=== PATIENT | male | born 1970 | race Caucasian/White ===

== ENCOUNTER 2018-01-28 11:51 | Emergency (ER) | payer OTHER, SELFPAY ==
[2018-01-28 11:53] VITALS: BP 157/87; PULSE 89; RESP 17; TEMP 36.7; O2SAT 97; BMI 36.3
--- NOTE | 2018-01-28 11:58 | ED.RN ---
PATIENT REPORTS WORKERS COMP CLAIM D/T ACCIDENT. UNKNOWN IF NEEDS DRUG SCREEN. WAITING ON RETURN CALL FROM PATIENT'S SECURITY CONTROL ROOM OFFICER.
--- NOTE | 2018-01-28 12:02 | ED.RN ---
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
--- NOTE | 2018-01-28 13:04 | ED.RN ---
Addendum entered by Angelica Verdin 01/28/18 13:06: ADACEL GIVEN IN LT DELTOID. Original Note: PT STATED HIS SAID HE HAS NOT HAD A TETANUS IN YEARS. THIS RN, MD, AND PHARMACIST UNABLE TO PUT ORDER IN FOR ADACEL. PER MD ADACEL GIVEN.
--- NOTE | 2018-01-28 13:18 | ED.DCSUM_ITS ---
- ER Visit Summary Date of Service: 01/28/18 Chief Complaint: Left lower leg laceration History of Present Illness: The patient is a 47 M unsure of tetanus. History of glaucoma. At work today was I think his left lower lateral leg on sheet metal. Does not lose any foreign body. This occurred within the last 2 hours. Denies other injuries. Physical Examination: Well-appearing middle-age male. Vital signs stable afebrile. H EENT exam unremarkable. Lungs clear heart regular rate and rhythm no murmur. Abdomen soft nontender. He is moving all 4 extremities. Neurovascular intact. Just below his left knee and the lateral aspect there is about a 3 inch linear laceration involving skin and subcu tissue. Mild oozing of blood. No pulsatile bleeding. No signs of infection or foreign body. I did probe and explore the entire wound. Distally left foot is neurovascularly intact. With normal DP pulse, dorsi plantarflexion, strength and sensation. Neurologic exam normal. Test Results: None Emergency Department Course and Treatment: Tetanus updated. Procedure note: Left lateral lower leg 3 inch or 6-7 cm laceration. Clean using iodine then washed irrigated and explored. I probed the wound with my finger and fell no foreign body. Local anesthetic was lidocaine was used. Closed using 5 simple interrupted 4-0 Ethilon sutures. Proper hemostasis and wound closure was obtained. Patient tolerated procedure well. He was instructed on wound care and suture removal in 10 days. Treatment Plan: Wound care. Suture removal 10 days Disposition: Discharge Impression: Acute left lower leg laceration of 6 cm with ER repair Worker's compensation injury This note was generated with [employer] dictation software. It may contain incorrect words, spelling, and punctuation that were not noted in review of the chart prior to signing ED Disposition - Plan for ED Patient: Chief Complaint: Laceration Referrals: Renan Ha, ÁNGEL-C [Primary Care Provider] -
--- NOTE | 2018-01-28 13:18 | ED.DEP ---
ED Disposition - Plan for ED Patient: Disposition: Home or Assisted Living Chief Complaint: Laceration Instructions: ED Laceration Ext Sutr Stap Tape Referrals: Renan Ha, PUBLIC SPACE ATTENDANT-C [Primary Care Provider] - 10 Day for suture removal Additional Instructions: Keep wound clean. Apply antibiotic ointment daily. Suture removal in about 10 days. Watch for any signs of infection.
[2018-01-28 13:21] VITALS: BP 126/88; PULSE 90; RESP 16; O2SAT 96
--- NOTE | 2018-01-28 13:23 | DCINST.ED_ITS ---
ED Disposition - Plan for ED Patient: Disposition: Home or Assisted Living Chief Complaint: Laceration Instructions: ED Laceration Ext Sutr Stap Tape Referrals: Renan Ha, HEAD RESIDENT-C [Primary Care Provider] - 10 Day for suture removal Additional Instructions: Keep wound clean. Apply antibiotic ointment daily. Suture removal in about 10 days. Watch for any signs of infection.
== END 2018-01-28 13:22 | disposition home or self-care (01) ==
PROVIDERS: Emergency Provider Emergency Medicine; Family Provider Nurse Practitioner Family; PCP Nurse Practitioner Family
DX: S81.812A Laceration without foreign body, left lower leg, initial encounter (principal); W45.8XXA Other foreign body or object entering through skin, initial encounter; Y93.9 Activity, unspecified; Y92.89 Other specified places as the place of occurrence of the external cause; Y99.0 Civilian activity done for income or pay; Z23 Encounter for immunization; H40.9 Unspecified glaucoma; F17.220 Nicotine dependence, chewing tobacco, uncomplicated
CPT/HCPCS: 12002; 90471; 90715; 99283

== ENCOUNTER 2023-12-14 23:17 | Emergency (ER) | payer OTHER, SELFPAY ==
[2023-12-14 23:18] VITALS: BP 182/96; PULSE 85; RESP 16; TEMP 36.2; O2SAT 97; BMI 40.2
--- NOTE | 2023-12-14 23:20 | EX.ED.DYSGE1 ---
HPI History of Present Illness Chief Complaint: Flank Pain [facility] [place] Medical History (Updated 12/14/23 @ 23:21 by Genny Ibrahim) Pigmentary glaucoma of both eyes Home Medications timolol maleate 0.5 % eye drops ophthalmic (eye) #30 mL 08/26/19 [History Last Taken Unknown] Allergy/AdvReac Type Severity Reaction Status Date / Time No Known Allergies Allergy Verified 08/26/19 08:49 Social History (Updated 08/26/19 @ 09:21 by Jada CERVANTES, PA) Smoking Status: Former smoker Smokeless tobacco user: chewing tobacco alcohol intake: never EXAM Physical Exam Const Vital Signs: 12/14/23 23:18 12/14/23 23:41 12/15/23 01:12 Temperature 97.1 F L 97.5 F L Temperature Source Temporal Pulse Rate 85 88 Respiratory Rate 16 19 H Blood Pressure 182/96 H 161/96 H 120/76 Blood Pressure Mean 124 117 90 Pulse Ox 97 95 Oxygen Delivery Method Room Air MDM MDM MDM Narrative Medical decision making narrative: HISTORY OF PRESENT ILLNESS: 53-year-old male presents with right flank pain that started at 10 PM. He states he developed acute onset of right sided abdominal pain. The pain is constant, severe, and non-radiating. No vomiting, no nausea. No history of kidney stones. No urinary complaints. No hematuria. No diarrhea. No fever. No history of abdominal surgeries. Does not take medications on a daily basis. REVIEW OF SYSTEMS: Pertinent positives: Flank pain Pertinent negatives: Vomiting, chest pain, difficulty urinating, painful urination, frequency, hematuria, constipation or diarrhea PHYSICAL EXAM: Nursing triage notes reviewed, Vital signs reviewed Constitutional: please see mdm HENT: MMM Eyes: Pupils equal round and reactive to light, Extraocular muscles intact Neck: No stridor, no JVD, full neck ROM Lungs: Clear to auscultation, No wheezing or rales. No increased work of breathing, no conversational dyspnea, no accessory muscle use, no nasal flaring. No respiratory distress noted Heart: Regular rate and rhythm, No murmurs, No rubs and No gallops, 2+ distal pulses (radial, femoral, posterior tibial) in all extremities Abdomen: Soft, there is right mid abdomen tenderness but no negative Puga sign, no tenderness of McBurney's point rigidity, rebound or guarding, no obvious peritoneal signs, no palpable pulsatile abdominal masses, no auscultated abdominal bruit : No CVAT Extremities: No edema Neuro: No focal neurological deficits, cranial nerves II through XII intact, 5/5 strength in all extremities. Intact sensation to light touch in all extremities, 2+ reflexes bilateral patella tendons. Normal gait. No ataxia. Skin: No rash or lesions noted MEDICAL DECISION MAKING: Chief Complaint: Flank pain External records reviewed: Recent adVanced imaging of the abdomen pelvis Factors affecting care: none reported MDM Narrative: Patient was initially hypertensive otherwise hemodynamically stable. Exam with right mid abdominal pain. No obvious pain at McBurney's point negative Puga sign. I considered the following differential diagnosis: UTI, pyelonephritis, nephrolithiasis, AAA, hepatobiliary pathology, acute appendicitis I obtained a broad lab and imaging workup to further elucidate etiology of previous complaints treat the patient with IV narcotics, IV fluids, Zofran and ALL IMAGES (IF OBTAINED) HAVE BEEN PERSONALLY REVIEWED AND INTERPRETED BY MYSELF. CBC without leukocytosis, severe anemia, no thrombocytopenia. CMP without evidence of acute kidney injury, significant electrolyte abnormality, anion gap, no evidence hepatobiliary pathology. Lipase is wnl indicating no pancreatic inflammation. CT scan abdomen pelvis shows no evidence of gallbladder abnormalities, no evidence of appendicitis or perforation or AAA Urinalysis shows no evidence of urinary inflammation suggestive of UTI Repeat abdominal exam is benign. The synthesis of the patient's history, physical exam, labs images suggest no acute life-limiting etiology. No clear etiology to explain his symptoms however his labs images and vital signs suggest this is not life-threatening. He was given GI and PCP follow-up The patient and/or family, caregivers express understanding. The patient and/or family, caregivers agrees with the plan. Shared decision making: I will have a discussion with the patient and or visitors regarding risk/benefits of further testing or admission. They will be made aware of of the risk/benefits inherent in this decision they will be given the opportunity to voice understanding. Total critical care time today provided was at least 0 minutes. This excludes separately billable procedures. Critical care time (if documented) is secondary to the patient having high probability of clinically significant/life threatening deterioration in the patient's condition which required my urgent intervention. Impression: 1. Acute abdominal pain Dispo: discharge home This note was generated with [employer] software. It may contain incorrect words, spelling, and punctuation that were not noted in review of the chart prior to signing. Lab Data Labs: Laboratory Results - last 24 hr 12/14/23 12/15/23 23:30 00:18 WBC 8.5 RBC 5.53 Hgb 15.3 Hct 45.6 MCV 82.5 MCH 27.7 MCHC 33.6 RDW Std Deviation 36.9 RDW Coeff of Eugenio 12.4 Plt Count 202 MPV 9.5 Immature Gran % (Auto) 0.500 Neut % (Auto) 46.2 L Lymph % (Auto) 35.8 Wells % (Auto) 11.4 H Eos % (Auto) 5.5 H Baso % (Auto) 0.6 Absolute Neuts (auto) 3.9 Absolute Lymphs (auto) 3.04 Nucleated RBC % 0 Sodium 139 Potassium 3.6 Chloride 106 Carbon Dioxide 27.0 Anion Gap 6 BUN 12 Creatinine 1.44 H Estim Creat Clear Calc 77.65 Est GFR (MDRD) Af Amer 66 Est GFR (MDRD) Non-Af 54 L BUN/Creatinine Ratio 8.3 L Glucose 136 H Calcium 8.3 L Total Bilirubin 0.30 Direct Bilirubin 0.09 AST 15 ALT 22 Alkaline Phosphatase 47 Total Protein 6.5 Albumin 3.4 Globulin 3.1 Lipase 64 Urine Color Yellow Urine Clarity Clear Urine pH 6.5 Ur Specific [place] 1.010 Urine Protein 15 H Urine Glucose (UA) Normal Urine Ketones Negative Urine Occult Blood Negative Urine Nitrite Negative Urine Bilirubin Negative Urine Urobilinogen Normal Ur Leukocyte Esterase Negative Urine RBC 0 SEEN Urine WBC 0 SEEN Ur Squamous Epith Cells 0 SEEN Urine Bacteria 0 SEEN Urine Mucus 0 SEEN Radiography Diagnostic Testing: Clinical Impression(s) from Imaging Studies Abdomen/Pelvis CT 12/14/23 23:28 IMPRESSION: No acute finding in the abdomen or pelvis. No inflammatory change. Normal appendix. Electronically Signed: Kevin Hallman MD at 0:04 EDT , Discharge Plan Triage Chief Complaint: Flank Pain Other Complaint: Abd Pain ED Provider: Kiel Durham Dx/Rx/DC Orders Instructions: ED Abdominal Pain Unkn Cause Male... Prescriptions: No Action timolol maleate 0.5 % drops OPHTHALMIC Qty: 30 Primary Care Provider: Renan Ha NP Referrals: FriendRaMalik, DO [Med Staff - Active Staff] - Renan Ha NP, COST ESTIMATING CLERK-C [Primary Care Provider] - Activity Restrictions/Additional Instructions: Thank you for trusting us with your care today! Please take Tylenol (2 pills, 650 mg), ibuprofen (2 pills, 400 mg) every 6 hours as needed for pain and fever control. Please return to the emergency department if your symptoms change or worsen. Please follow with your primary care physician for further outpatient evaluation and management. Disposition Disposition: Home, Self Care Discharge Date/Time: 12/15/23 01:24
[2023-12-14] MEDS: 0.9% Normal Saline (1000mL) 1,000 ML 1000 ML IV (23:28)
--- NOTE | 2023-12-14 23:28 | CT_ITS ---
STUDY: CT ABDOMEN AND PELVIS WITH CONTRAST REASON FOR EXAM: Male, 53 years old. Right-sided abdominal pain RADIATION DOSAGE (If Supplied By Facility): CTDIvol = ( 20.25 ) mGy, DLP = ( 1311.93 ) mGycm TECHNIQUE: IV 100mL Isovue-370 was administered. Transaxial images were obtained from the dome of the diaphragm to the symphysis pubis in the portal venous phase. Multiplanar coronal and sagittal images were reformatted. Individualized Dose Optimization Techniques Were Used For This CT. COMPARISON: No relevant prior comparison study available FINDINGS: LOWER CHEST: Bibasilar atelectasis. No cardiomegaly or pericardial effusion. LIVER: The liver is normal in size, shape, and attenuation. No focal mass. GALLBLADDER AND BILIARY TREE: The gallbladder is normally distended. No gallstones. No gallbladder wall thickening or edema. No pericholecystic fluid. No intra- or extrahepatic biliary ductal dilation. PANCREAS: No focal cystic or solid mass. SPLEEN: Normal size without focal cystic or solid mass. A few calcified granulomas are present. ADRENAL GLANDS: No nodules. KIDNEYS AND URETERS: Normal renal size and position. No hydronephrosis or nephrolithiasis. PERITONEUM: No ascites or free air. No other fluid collection. BOWEL: The stomach is unremarkable. Normal caliber small bowel. There is no obstruction. No colonic wall thickening or inflammation. No evidence of acute appendicitis. LYMPH NODES: Prominent lymph node along the left iliac chain measures 1.5 cm short axis. Otherwise there is no lymphadenopathy. VESSELS: The aorta is normal in caliber with mild atherosclerotic calcification. URINARY BLADDER: Unremarkable. REPRODUCTIVE ORGANS: No pelvic masses. ABDOMINAL WALL: No discrete abdominal or pelvic wall hernia. BONES: No lytic or blastic abnormality. Moderate degenerative change throughout the spine. CT/Abdomen/Pelvis W IV Cont ONLY IMPRESSION: No acute finding in the abdomen or pelvis. No inflammatory change. Normal appendix. Electronically Signed: Kevin Hallman MD at 0:04 EDT ,
[2023-12-14] MEDS: Morphine 4 MG/ML Syringe IV (23:35)
[2023-12-14] MEDS: Ketorolac 15 MG/ML Vial IV (23:35)
[2023-12-14 23:37] LABS: Absolute Lymphocyte Count 3.04 X10^3/uL (0.83-4.51); Absolute Neutrophil Count 3.9 X10^3/uL (2.0-7.7); Basophil# 0.05 X10^3/uL; Basophil% 0.6 % (0-1); Eosinophil# 0.47 X10^3/uL; Eosinophils% 5.5 % (0-5); Hematocrit 45.6 % (40-54); Hemoglobin 15.3 g/dL (13.0-16.5); Lymphocyte # 3.04 X10^3/ul (0.83-4.51); Lymphocyte % 35.8 % (19-41); Mean Corp Hgb Conc 33.6 g/dL (32-36); Mean Corpuscular Hgb 27.7 pg (27.0-32.0); Mean Corpuscular Volume 82.5 fL (80-94); Mean Platelet Vol. 9.5 fl (6.2-12.0); Monocyte# 0.97 X10^3/uL; Monocyte% 11.4 % (0-10); NRBC Flagged by Analyzer 0 % (0-5); Neutrophil # 3.91 X10^3/uL (2.7-7.7); Neutrophil % 46.2 % (47-70); Platelet Count 202 K/mm3 (150-450); RBC Distribution Width CV 12.4 % (11.6-14.6); RBC Distribution Width SD 36.9 fl (35.1-43.9); Red Blood Count 5.53 M/mm3 (4.6-6.2); White Blood Count 8.5 K/mm3 (4.4-11.0)
[2023-12-14 23:41] VITALS: BP 161/96
[2023-12-15 00:02] LABS: AST(SGOT) 15 U/L (15-37); Alanine Aminotransfer ALT/SGPT 22 U/L (16-61); Albumin, Serum 3.4 g/dL (3.2-5.0); Alkaline Phosphatase 47 U/L (45-117); Anion Gap 6 (5-15); BUN 12 mg/dL (7-18); BUN/Creat Ratio 8.3 RATIO (10-20); Bilirubin, Direct 0.09 mg/dL (0.00-0.30); Calcium,Total 8.3 mg/dL (8.5-10.1); Chloride 106 mmol/L (98-107); Creatinine, Serum 1.44 mg/dL (0.70-1.30); EST Glomerular Filtration Rate 54 mL/min (>60); Est Glom Filt Rate - Afr Amer 66 mL/min (>60); Estimated Creatinine Clearance 77.65 ml/min; Globulin 3.1 g/dL (2.2-4.2); Glucose 136 mg/dL (74-106); Lipase 64 U/L (13-75); Potassium 3.6 mmol/L (3.5-5.1); Protein, Total 6.5 g/dL (6.4-8.2); Sodium Level 139 mmol/L (136-145)
[2023-12-15 00:26] LABS: Bacteria 0 SEEN /hpf (None Seen); Mucous, Urine 0 SEEN /hpf (<or=2+); Red Blood Cells-Urine 0 SEEN /hpf (0-5); Squamous Epithelial Cells - UA 0 SEEN /hpf (0-5); White Blood Cells 0 SEEN /hpf (0-5)
[2023-12-15 00:29] LABS: Color, Urine Yellow (Yellow); Glucose, Dipstick Normal (Normal); Ketone-Dipstick Negative (Negative); Leukocyte Esterase-Dipstick Negative /ul (Negative); Nitrite-Dipstick Negative (Negative); Occult Blood-Urine Negative /ul (Negative); Protein-Dipstick 15 mg/dl (Negative); Urine Bilirubin Dipstick Negative (Negative); Urine Clarity Clear (Clear); Urine Urobilinogen Normal (Normal); Urine pH 6.5 (5.0 - 8.0)
[2023-12-15 01:12] VITALS: BP 120/76; PULSE 88; RESP 19; TEMP 36.4; O2SAT 95
== END 2023-12-15 01:24 | disposition home or self-care (01) ==
PROVIDERS: Emergency Provider Emergency Medicine; PCP Nurse Practitioner Family; Visit Provider Emergency Medicine
DX: R10.9 Unspecified abdominal pain (principal); Z87.891 Personal history of nicotine dependence
CPT/HCPCS: 74177; 80048; 80076; 81001; 83690; 85025; 96361; 96374; 96375; 99285; J7030; Q9967; A4216